=== PATIENT | male | born 1995 | race Two or more races ===

== ENCOUNTER 2025-02-22 17:04 | Emergency (ER) | payer SELFPAY ==
[2025-02-22 17:06] VITALS: BP 146/104
[2025-02-22 17:55] LABS: Blood Urea Nitrogen 13 mg/dl (9-20); Calcium 9.7 mg/dl (8.4-10.2); Carbon Dioxide 24 mmol/L (22-30); Chloride 103 mmol/L (98-107); Glucose 119 mg/dl (70-99); Sodium 136 mmol/L (135-145); eGFR > 60.00
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
[2025-02-22] MEDS: TYLENOL 1000 MG PO (20:43)
== END 2025-02-22 20:55 | disposition home or self-care (01) ==
LOC: EMR 17:04
PROVIDERS: Emergency Medicine; EMERGENCY PHYSICIAN Student in an Organized Health Care Education/Training Program
DX: S09.90XA Unspecified injury of head, initial encounter (principal); S16.1XXA Strain of muscle, fascia and tendon at neck level, initial encounter; S80.12XA Contusion of left lower leg, initial encounter; V49.40XA Driver injured in collision with unspecified motor vehicles in traffic accident, initial encounter; Y92.410 Unspecified street and highway as the place of occurrence of the external cause
CPT/HCPCS: 99284; 70450; 71046; 72125; 73552; 73590; 80048; 93005